=== PATIENT | male | born 1955 | race Hispanic/Latino ===

== ENCOUNTER 2019-09-04 06:38 | Observation (INO) | payer MEDICARE ==
[2019-09-04] MEDS ORDERED: ASPIRIN EC 325 MG TAB PO NR (06:57)
[2019-09-04] MEDS ORDERED: SODIUM CHLORIDE 0.9% 500 ML 500 ML IV SCH (07:00)
[2019-09-04 07:38] LABS: Basophils # (Auto) 0.1 K/mm3 (0.0-0.1); Eosinophils # (Auto) 0.4 K/mm3 (0.0-0.4); Eosinophils % (Auto) 3.3 % (0.0-4.3); Hematocrit 46.8 % (35.5-45.6); Hemoglobin 15.5 gm/dl (11.8-15.2); Lymphocytes # (Auto) 2.1 K/mm3 (1.2-5.4); Lymphocytes % (Auto) 17.5 % (13.4-35.0); Mean Corpuscular HGB Conc 33 % (32-34); Mean Corpuscular Volume 90 fl (84-94); Monocytes # (Auto) 1.2 K/mm3 (0.0-0.8); Platelet Count 271 K/mm3 (140-440); Red Blood Count 5.22 M/mm3 (3.65-5.03); Red Cell Distribution Width 13.9 % (13.2-15.2)
[2019-09-04 07:47] LABS: INR 1.05 (0.87-1.13)
[2019-09-04 07:49] LABS: BUN/Creatinine Ratio 23; Blood Urea Nitrogen 16 mg/dL (9-20); Calcium 8.9 mg/dL (8.4-10.2); Hemolysis Index 101
[2019-09-04] MEDS ORDERED: VERAPAMIL 5 MG/2 ML INJ ONE (08:19)
[2019-09-04] MEDS ORDERED: MIDAZOLAM 2 MG/2 ML INJ ONE (08:19)
[2019-09-04] MEDS ORDERED: HEPARIN 10,000 UNITS/10 ML VIAL ONE (08:19)
[2019-09-04] MEDS ORDERED: HEPARIN/NS 5000 UNIT/500ML 1,000 ML IR ONE (08:19)
[2019-09-04] MEDS ORDERED: LIDOCAINE (2%) 20 MG/1 ML VIAL 20 ML MDV INFILTRATI ONE (08:20)
[2019-09-04] MEDS ORDERED: NITROGLYCERIN SYRINGE 3 ML ONE (08:20)
[2019-09-04] MEDS: fentaNYL 100 MCG/2 ML INJ ONE ×2 (08:59→09:28)
[2019-09-04] MEDS ORDERED: SODIUM CHLORIDE 0.9% 50 ML ONE (09:11)
[2019-09-04] MEDS: BIVALIRUDIN 250 MG INJ IV ONE ×2 (09:12→09:20)
[2019-09-04] MEDS: CLOPIDOGREL 300 MG TAB ONE ×2 (09:35→09:49)
[2019-09-04] MEDS: ALUM-MAG HYDROXIDE-SIMETHICONE 200-200-20MG/5ML ORAL LIQD 30 ML ONE ×2 (09:36→09:49)
[2019-09-04] MEDS ORDERED: traMADol 50 MG TAB PO PRN (09:50)
[2019-09-04] MEDS ORDERED: ZOLPIDEM 5 MG TAB PO PRN (09:50)
[2019-09-04] MEDS ORDERED: ONDANSETRON 4 MG/2 ML INJ IV PRN (09:50)
[2019-09-04] MEDS ORDERED: DEXTROSE 50% IN WATER (25GM) 50 ML SYRINGE IV PRN (09:53)
[2019-09-04] MEDS ORDERED: SODIUM CHLORIDE 0.9% 1000 ML 1,000 ML IV SCH (10:00)
[2019-09-04] MEDS ORDERED: amLODIPine 5 MG TAB PO SCH (10:00)
--- NOTE | 2019-09-04 10:10 | Cardiac Catherization Report ---
LEFT HEART CATHETERIZATION, PERCUTANEOUS CORONARY INTERVENTION AND INTRAVASCULAR ULTRASOUND REPORT CLINICAL INFORMATION: This is a 64-year-old, hypertension, diabetes, cholesterol, coronary artery disease, smoker, has been having unstable anginal symptoms despite nitrates and calcium channel blockers, here for left heart catheterization. The patient was done under moderate sedation 30 minutes of supervised sedation, start 8:59 a.m., finished at 9:29 a.m. Procedure was done via the right radial artery, sterile technique, local anesthesia, 6-Bangladeshi radial sheath inserted. PROCEDURE FINDINGS: 1. Left system, JL3.5 catheter, left main is large and patent. LAD proximal diffuse 30-40%. Diagonal 1 small caliber vessel, long mid 70% with less than 2 mm vessel. Then, the mid LAD is a 95-99% lesion with MEG 3 flow. Rest of the vessel is a large caliber vessel, patent with mild luminal irregularities. Circumflex is a medium to large caliber vessel, patent with mild to moderate luminal irregularities. OM1 is a medium to large caliber vessel. It is patent with mild luminal irregularities. RCA engaged with JR4 catheter, is a large dominant vessel, proximal diffuse 30-40%, mid to distal patent with mild irregularities. PDA and PLV are medium caliber vessels are patent with mild luminal irregularities. LV gram done in ORALIA and DOMINGUEZ view shows normal LV function, LVEDP of 17 mmHg, LV is 162, aortic is 163/95. No gradient across the aortic valve on pullback. 5-Bangladeshi catheters all taken over a guidewire. Percutaneous coronary intervention of the LAD engaged the left system with an EBU 3.5 guiding catheter. 2. Crossed the distal LAD with short Carlotta wire. 3. Predilated with 2.5 x 12 mm balloon x 2 inflations at 15 atmospheres. 4. Reduced stenosis to 70%. 5. Intravascular ultrasound showed diffuse disease at the lesion reference vessel 3.5 x 3.2. Proximal too diffusely disease all the way up to the ostium, left main is patent. 6. Stented with a drug-eluting Xience 3.0 x 15 mm at 18 atmospheres. 7. Post-dilated with a 3.5 x 8 mm noncompliant balloon within the stent at 12 atmospheres x 2 inflations. 8. Repeat angiogram, excellent angiographic result, MEG 3 flow, reduced stenosis from 99% down 0% with no dissection or perforation, removed coronary wire, multiple angiograms, continued MEG 3 flow and no dissection or perforation and stent well opposed and expanded. 9. A 6-Bangladeshi guiding catheter taken over guidewire, 6-Bangladeshi radial sheath was discontinued. Radial band applied. No hematoma, no bleeding. SUMMARY: 1. Successful PCI of the mid LAD with IVUS directed with a drug-eluting Xience 3.0 x 15 mm postdilated with 3.5 x 8 x 2 inflations at 12 atmospheres. 2. Left main patent, LAD proximal 30-40%, diagonal 1 small vessel, less than 2 mm, mid 70%, circumflex large caliber vessel, patent. OM1 patent with mild irregularities. RCA proximal 30-40%, mid to distal patent. PDA, PLV patent with normal LV function. 3. Post-PCI care, risk factor modification 600 mg Plavix was loaded, dual antiplatelet therapy for a minimum of 1 year. Discussed this in detail with the patient and the patient's family. [facility]# [id number]
[2019-09-04] MEDS: INSULIN REGULAR, HUMAN 100 UNITS/1 ML SUB-Q SCH ×2 (14:10→20:06)
[2019-09-04] MEDS: FINASTERIDE 5 MG TAB PO SCH (15:00)
[2019-09-04] MEDS: amLODIPine 10 MG TAB PO SCH (15:00)
[2019-09-04] MEDS ORDERED: GABAPENTIN 100 MG CAP PO SCH (22:00)
[2019-09-05 07:29] LABS: Basophils # (Auto) 0.1 K/mm3 (0.0-0.1); Basophils % (Auto) 0.6 % (0.0-1.8); Eosinophils # (Auto) 0.3 K/mm3 (0.0-0.4); Eosinophils % (Auto) 2.7 % (0.0-4.3); Hematocrit 50.4 % (35.5-45.6); Hemoglobin 16.2 gm/dl (11.8-15.2); Lymphocytes # (Auto) 2.3 K/mm3 (1.2-5.4); Mean Corpuscular HGB Conc 32 % (32-34); Mean Corpuscular Volume 92 fl (84-94); Monocytes % (Auto) 7.8 % (0.0-7.3); Platelet Count 266 K/mm3 (140-440); Red Blood Count 5.46 M/mm3 (3.65-5.03); Red Cell Distribution Width 14.2 % (13.2-15.2)
[2019-09-05] MEDS: INSULIN REGULAR, HUMAN 100 UNITS/1 ML SUB-Q SCH (08:00)
[2019-09-05 08:04] LABS: BUN/Creatinine Ratio TNR; Blood Urea Nitrogen TNR mg/dL (9-20); Calcium TNR mg/dL (8.4-10.2)
[2019-09-05 08:05] LABS: Creatine Kinase MB TNR ng/mL (0.0-4.0); Hemolysis Index TNR
--- NOTE | 2019-09-05 09:09 | XRay Report ---
CHEST 1 VIEW 09/05/2019 8:15 AM INDICATION / CLINICAL INFORMATION: post pci. COMPARISON: None FINDINGS: SUPPORT DEVICES: None. HEART / MEDIASTINUM: No significant abnormality. LUNGS / PLEURA: Small right pleural effusion and right basilar parenchymal disease suggestive for bro nchopneumonia. Left lung is clear. No pneumothorax. ADDITIONAL FINDINGS: No significant additional findings. IMPRESSION: 1. Right lower lobe pleural-parenchymal disease suggestive for bronchopneumonia Signer Name: John Gee MD Signed: 09/05/2019 9:05 AM Workstation Name: [id number]
--- NOTE | 2019-09-05 09:50 | Short Stay Summary ---
<ALYCE HERNADEZ - Last Filed: 09/05/19 10:52> Short Stay Documentation Date of service: 09/05/19 - History H&P: obtained from office - Allergies and Medications Current Medications: Allergies No Known Allergies Allergy (Verified 02/08/15 08:49) Home Medications Medication Instructions Recorded Confirmed Last Taken Type Amlodipine Besylate 10 mg PO DAILY 02/08/15 09/04/19 09/02/19 History 10 mg Canagliflozin (Nf) [Invokana (Nf)] 300 mg PO TID 02/08/15 09/01/19 02/07/15 21:00 History Gabapentin 300 mg PO QHS 02/08/15 09/04/19 08/28/19 History 300 mg Metformin HCl 500 mg PO BID 02/08/15 09/04/19 09/01/19 History 500 mg Aspirin [Adult Aspirin] 81 mg PO DAILY 09/01/19 09/04/19 09/01/19 History 81 mg AtorvaSTATin [Lipitor] 40 mg PO QHS 09/01/19 09/04/19 09/02/19 History 40 mg Empagliflozin [Jardiance] 25 mg PO QAM 09/01/19 09/04/19 09/01/19 History 25 mg Finasteride 5 mg PO DAILY 09/01/19 09/04/19 09/02/19 History 5 mg ISOSORBIDE MONOnitrate [Imdur ER] 30 mg PO DAILY 09/01/19 09/01/19 Unknown History Liraglutide [Victoza 2-Edi] 1.2 mg SQ QDAY 09/01/19 09/04/19 09/02/19 History 1.2mg Nitrostat 0.4 mg SL UNK PRN 09/04/19 09/04/19 09/02/19 History 0.4mg Active Medications Amlodipine Besylate (Amlodipine) 10 mg PO DAILY [facility] Last Admin: 09/04/19 15:00 Dose: 10 mg Documented by: Aspirin (Baby Aspirin) 81 mg PO QDAY [facility] Atorvastatin Calcium (Lipitor) 40 mg PO QHS [facility] Last Admin: 09/04/19 21:46 Dose: 40 mg Documented by: Clopidogrel Bisulfate (Plavix) 75 mg PO QDAY [facility] Dextrose (D50w (25gm) Syringe) 50 ml IV Q30MIN PRN PRN Reason: Hypoglycemia Finasteride (Proscar) 5 mg PO DAILY [facility] Last Admin: 09/04/19 15:00 Dose: 5 mg Documented by: Gabapentin (Gabapentin) 300 mg PO QHS [facility] Last Admin: 09/04/19 21:46 Dose: 300 mg Documented by: Insulin Human Regular (Humulin R) 0 units SUB-Q ACHS [facility]; Protocol Last Admin: 09/04/19 20:06 Dose: Not Given Documented by: Isosorbide Mononitrate (Imdur) 30 mg PO DAILY [facility] Last Admin: 09/04/19 15:00 Dose: 30 mg Documented by: Ondansetron HCl (Zofran) 4 mg IV Q8H PRN PRN Reason: N/V unrelieved by Reglan Tramadol HCl (Ultram) 50 mg PO Q4H PRN PRN Reason: Pain, Mild (1-3) Zolpidem Tartrate (Ambien) 5 mg PO QHS PRN PRN Reason: Sleep - Physical exam General appearance: no acute distress Integumentary: no rash, no growths, no abnormal pigmentation, other ([facility] access site c/d/i, no bleeding or hematoma) HEENT: Atraumatic, PERRLA, EOMI Lungs: Clear to auscultation Heart: Regular rate, Normal S1, Normal S2 Gastrointestinal: normal, normoactive bowel sounds Extremities: no ischemia, pulses intact, pulses symmetrical, No edema Neurological: Normal gait, Normal speech, Strength at 5/5 X4 ext - Brief post op/procedure progress note Date of procedure: 09/04/19 Pre-op diagnosis: CAD Post-op diagnosis: same Procedure: [facility] with PCI - see dictated cath report Anesthesia: local Estimated blood loss: none Condition: stable - Disposition Condition at discharge: Good Disposition: DC-01 TO HOME OR SELFCARE - Discharge Diagnoses (1) CAD (coronary artery disease) Status: Chronic (2) Stented coronary artery Status: Chronic (3) COPD (chronic obstructive pulmonary disease) Status: Chronic (4) HTN (hypertension) Status: Chronic (5) Hyperlipemia Status: Chronic Short Stay Discharge Plan Activity: advance as tolerated Diet: low fat, low cholesterol, low salt Wound: open to air, keep clean and dry, per your surgeon's advice Follow up with: PRIMARY CARE, [Primary Care Provider] - 7 Days CAYDEN PARR MD [Staff Physician] - 7 Days Forms: Work/School Release Form Prescriptions: Clopidogrel [Plavix] 75 mg PO QDAY #90 tablet <CAYDEN PARR - Last Filed: 09/06/19 08:44> Short Stay Documentation - Allergies and Medications Current Medications: Allergies No Known Allergies Allergy (Verified 02/08/15 08:49) Home Medications Medication Instructions Recorded Confirmed Last Taken Type Amlodipine Besylate 10 mg PO DAILY 02/08/15 09/04/19 09/02/19 History 10 mg Canagliflozin (Nf) [Invokana (Nf)] 300 mg PO TID 02/08/15 09/01/19 02/07/15 21:00 History Gabapentin 300 mg PO QHS 02/08/15 09/04/19 08/28/19 History 300 mg Metformin HCl 500 mg PO BID 02/08/15 09/04/19 09/01/19 History 500 mg Aspirin [Adult Aspirin] 81 mg PO DAILY 09/01/19 09/04/19 09/01/19 History 81 mg AtorvaSTATin [Lipitor] 40 mg PO QHS 09/01/19 09/04/19 09/02/19 History 40 mg Empagliflozin [Jardiance] 25 mg PO QAM 09/01/19 09/04/19 09/01/19 History 25 mg Finasteride 5 mg PO DAILY 09/01/19 09/04/19 09/02/19 History 5 mg ISOSORBIDE MONOnitrate [Imdur ER] 30 mg PO DAILY 09/01/19 09/01/19 Unknown History Liraglutide [Victoza 2-Edi] 1.2 mg SQ QDAY 09/01/19 09/04/19 09/02/19 History 1.2mg Nitrostat 0.4 mg SL UNK PRN 09/04/19 09/04/19 09/02/19 History 0.4mg Aspirin [Aspirin BABY CHEW TAB] 81 mg PO QDAY tab.chew 09/05/19 Unknown Rx Clopidogrel [Plavix] 75 mg PO QDAY #90 tablet 09/05/19 Unknown Rx Zolpidem [Ambien] 5 mg PO QHS PRN tablet 09/05/19 Unknown Rx amLODIPine 10 mg PO DAILY tablet 09/05/19 Unknown Rx - Brief post op/procedure progress note Pathology: none - Hospital course Hospital course: pt was admitted for unstable angina despite medical treatment with history of smoking, cad, dm, chol and htn and cath revealed lad mid 99% with pci of lad with pearl xience 3.0 xs 15 mm and post 3.5 x 8 mm ivus directed, placed on asa and plavix, pt chest pain resolved after pci and ambulated and observed pt and discharge with smoking cessation counseling and education. cont home meds, held metformin for two days and need aggressive risk factor modifications. - Discharge Diagnoses (1) Diabetes mellitus Status: Acute Qualifiers: Diabetes mellitus type: type 2 Diabetes mellitus halfway insulin use: with halfway use Diabetes mellitus complication status: with circulatory complication Diabetes mellitus complication detail: with other circulatory complications Qualified Code(s): E11.59 - Type 2 diabetes mellitus with other circulatory complications; Z79.4 - snf (current) use of insulin (2) Chest pain Status: Acute Qualifiers: Ischemic chest pain type: unstable angina pectoris (3) CAD (coronary artery disease) Status: Chronic Qualifiers: Coronary Disease-Associated Artery/Lesion type: [place] artery [place] vs. transplanted heart: [place] heart Associated angina: with unstable angina Qualified Code(s): I25.110 - Atherosclerotic heart disease of [place] coronary artery with unstable angina pectoris (4) COPD (chronic obstructive pulmonary disease) Status: Chronic Qualifiers: COPD type: unspecified COPD Qualified Code(s): J44.9 - Chronic obstructive pulmonary disease, unspecified (5) HTN (hypertension) Status: Chronic Qualifiers: Hypertension type: essential hypertension Qualified Code(s): I10 - Essential (primary) hypertension (6) Hyperlipemia Status: Chronic Qualifiers: Hyperlipidemia type: mixed hyperlipidemia Qualified Code(s): E78.2 - Mixed hyperlipidemia (7) Tobacco abuse Status: Chronic Short Stay Discharge Plan Special Instructions: hold Metformin (for two days)
[2019-09-05] MEDS ORDERED: ASPIRIN 81 MG TAB CHEW PO SCH (10:00)
[2019-09-05] MEDS ORDERED: CLOPIDOGREL 75 MG TAB PO SCH (10:00)
[2019-09-05] MEDS: amLODIPine 10 MG TAB PO SCH (10:38)
[2019-09-05] MEDS: FINASTERIDE 5 MG TAB PO SCH (10:38)
[2019-09-05 10:40] VITALS: BP 153/94
[2019-09-05 10:41] LABS: Creatine Kinase MB 6.6 ng/mL (0.0-4.0)
[2019-09-05 10:44] LABS: BUN/Creatinine Ratio 21; Blood Urea Nitrogen 15 mg/dL (9-20); Calcium 8.8 mg/dL (8.4-10.2); Hemolysis Index 5
[2019-09-05 11:18] LABS: Chol/HDL Ratio 3.38 %; HDL Cholesterol 42 mg/dL (40-59); LDL Cholesterol,Direct 95 mg/dL (50-130)
[2019-09-05] MEDS ORDERED: FLU VACC QUAD 2019-20 (3 YR UP)/PF 60 MCG/0.5 ML SYRINGE IM ONE (12:00)
== END 2019-09-05 11:10 | disposition home or self-care (01) ==
LOC: CATHLABREC 06:38 → 4A 09:50
PROVIDERS: ADMIT Internal Medicine; ATTEND Internal Medicine
DX: I25.10 Atherosclerotic heart disease of native coronary artery without angina pectoris (principal); J44.9 Chronic obstructive pulmonary disease, unspecified; I10 Essential (primary) hypertension; E11.9 Type 2 diabetes mellitus without complications; B19.20 Unspecified viral hepatitis C without hepatic coma; E78.5 Hyperlipidemia, unspecified; E66.01 Morbid (severe) obesity due to excess calories; Z72.0 Tobacco use; Z68.33 Body mass index [BMI] 33.0-33.9, adult; Z95.1 Presence of aortocoronary bypass graft
CPT/HCPCS: 36415; 71045; 80048; 80061; 82550; 82553; 82962; 84484; 85025; 85347; 85610; 85730; 92978; 93005; 93010; 93458; 96372; 99406; A9270; C1725; C1753; C1769; C1874; C1887; C1894; C9600; G0378; J0583; J1644; J2250; J3010; J7040; 90686; 92928; Q9967

== ENCOUNTER 2021-08-01 07:16 | Day surgery (SDC) | payer MEDICARE ==
[2021-08-01] MEDS ORDERED: SODIUM CHLORIDE 0.9% 500 ML 500 ML IV SCH (08:00)
[2021-08-01 08:10] LABS: Basophils # (Auto) 0.1 K/mm3 (0.0-0.1); Eosinophils # (Auto) 0.5 K/mm3 (0.0-0.4); Eosinophils % (Auto) 3.5 % (0.0-4.3); Hematocrit 37.3 % (35.5-45.6); Hemoglobin 12.9 gm/dl (11.8-15.2); Lymphocytes # (Auto) 2.5 K/mm3 (1.2-5.4); Lymphocytes % (Auto) 17.7 % (13.4-35.0); Mean Corpuscular HGB Conc 35 % (32-34); Mean Corpuscular Volume 85 fl (84-94); Monocytes # (Auto) 1.2 K/mm3 (0.0-0.8); Monocytes % (Auto) 8.1 % (0.0-7.3); Platelet Count 306 K/mm3 (140-440); Red Cell Distribution Width 16.1 % (13.2-15.2)
[2021-08-01 08:21] LABS: INR 0.91 (0.87-1.13)
[2021-08-01 08:30] LABS: BUN/Creatinine Ratio 15; Blood Urea Nitrogen 12 mg/dL (9-20); Hemolysis Index 32
--- NOTE | 2021-08-01 08:51 | Electrocardiograph Report ---
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
[2021-08-01] MEDS ORDERED: ASPIRIN 81 MG TAB CHEW PO SCH (10:00)
[2021-08-01] MEDS ORDERED: HEPARIN 10,000 UNITS/10 ML VIAL ONE (10:07)
[2021-08-01] MEDS ORDERED: HEPARIN/NS 5000 UNIT/500ML 1,000 ML IR ONE (10:07)
[2021-08-01] MEDS ORDERED: MIDAZOLAM 2 MG/2 ML INJ ONE (10:07)
[2021-08-01] MEDS ORDERED: NITROGLYCERIN SYRINGE 3 ML ONE (10:08)
[2021-08-01] MEDS ORDERED: fentaNYL 100 MCG/2 ML INJ ONE (10:08)
[2021-08-01] MEDS ORDERED: VERAPAMIL 5 MG/2 ML INJ ONE (10:08)
[2021-08-01] MEDS ORDERED: LIDOCAINE (2%) 20 MG/1 ML VIAL 20 ML MDV INFILTRATI ONE (10:08)
--- NOTE | 2021-08-01 11:37 | Cardiac Catherization Report ---
DATE OF SERVICE: 08/01/2021 LEFT HEART CATHETERIZATION CLINICAL INFORMATION: This is a 66-year-old former smoker, obesity, diabetes, hypertension, hyperlipidemia, coronary artery disease, PCI to LAD in 2017, paroxysmal atrial fibrillation, was in the hospital at [facility] for systolic heart failure with EF of 40% with non-STEMI. Cardiac catheterization was deferred because of COVID status. The patient is currently compensated here for left heart catheterization. Procedure was done. Moderate sedation start at 10:30, finished at 10:53. Fifteen minutes of moderate sedation done. DESCRIPTION OF PROCEDURE: Procedure was done via the right radial artery, sterile technique and local anesthesia. A 6-Bangladeshi radial sheath inserted. Left system engaged with JL3.5 catheter. Left main is a large caliber was patent. Proximal, mid patent, distal 20%. Ostial LAD of a medium to large caliber vessel with 90%. Mid stent patent. Diagonal 1 is a small caliber vessel in the upper and lower branch. Lower branch has diffuse 90% of less than 2 mm vessel. Rest of the LAD is a medium to large caliber patent with mild luminal irregularities. Circumflex and AV groove is a medium caliber vessel patent with mild luminal irregularities. Ramus is a medium caliber vessel has proximal 30%. OM1 is a medium caliber vessel, patent. RCA engaged JR4 is a large, dominant vessel with diffuse disease with mid 20-30%. LV gram done in ORALIA and DOMINGUEZ view shows normal LV function, EF 50% to 55%. LVEDP at 33 mmHg. LV is 163, aortic is 160/90. No gradient across the aortic valve on pullback. A 5-Bangladeshi catheters all taken over a guidewire. A 6-Bangladeshi radial sheath discontinued. Radial band applied. No hematoma, no bleeding. SUMMARY: Left main, proximal, mid patent distal 20% LAD, ostial 90% mid stent patent. Diagonal 1 small caliber, lower branch 90% ramus, medium caliber proximal 30%. Circumflex AV groove was patent. OM1, medium caliber vessel, patent. RCA mid 20-30% diffuse disease, normal LV function, elevated left end end-diastolic pressure. RECOMMENDATIONS: The patient will be referred for robotic ALDANA to LAD. Discussed this in detail with the patient and the patient's family. TID: [id number] RECEIPT: [id number] JASONM/KIRK
--- NOTE | 2021-08-01 11:38 | Short Stay Summary ---
Short Stay Documentation Date of service: 08/01/21 - History H&P: obtained from office - Allergies and Medications Current Medications: Allergies No Known Allergies Allergy (Verified 02/08/15 08:49) Home Medications Medication Instructions Recorded Confirmed Last Taken Type Amlodipine Besylate 10 mg PO DAILY 02/08/15 08/01/21 09/02/19 History 10 mg Gabapentin 300 mg PO QHS 02/08/15 08/01/21 08/28/19 History 300 mg Metformin HCl 1,000 mg PO BID 02/08/15 08/01/21 07/30/21 History 1000 AtorvaSTATin [Lipitor] 40 mg PO QHS 09/01/19 08/01/21 07/30/21 History 40 mg Empagliflozin [Jardiance] 25 mg PO QAM 09/01/19 08/01/21 09/01/19 History 25 mg Finasteride 5 mg PO DAILY 09/01/19 08/01/21 09/02/19 History 5 mg ISOSORBIDE MONOnitrate [Imdur ER] 30 mg PO DAILY 09/01/19 08/01/21 07/30/21 History 30 mg Liraglutide [Victoza 2-Edi] 1.2 mg SQ QDAY 09/01/19 08/01/21 09/02/19 History 1.2mg Nitrostat 0.4 mg SL UNK PRN 09/04/19 08/01/21 09/02/19 History 0.4mg Aspirin [Aspirin BABY CHEW TAB] 81 mg PO QDAY tab.chew 09/05/19 08/01/21 07/30/21 Rx 81 mg Zolpidem [Ambien] 5 mg PO QHS PRN tablet 09/05/19 08/01/21 Unknown Rx amLODIPine 10 mg PO DAILY tablet 09/05/19 08/01/21 Unknown Rx Apixaban [Eliquis] 5 mg PO BID 08/01/21 08/01/21 07/30/21 History 5 mg Ezetimibe [Zetia] 10 mg PO DAILY 08/01/21 08/01/21 07/30/21 History 10 mg Furosemide [Lasix TAB] 40 mg PO DAILY 08/01/21 08/01/21 07/30/21 History 40 mg Lisinopril [Zestril TAB] 2.5 mg PO QDAY 08/01/21 08/01/21 07/30/21 History 2.5 mg Metoprolol [Lopressor TAB] 25 mg PO DAILY 08/01/21 08/01/21 07/30/21 History 25 mg Active Medications Aspirin (Aspirin 81 Mg Tab Chew) 81 mg PO QDAY CARLOS Sodium Chloride (Nacl 0.9% 500 Ml) 500 mls @ 50 mls/hr IV DIRECT CARLOS Stop: 08/01/21 17:59 - Physical exam Integumentary: other (clean, dry, intact, no bleeding or hematoma) - Brief post op/procedure progress note Date of procedure: 08/01/21 Pre-op diagnosis: NSTEMI Post-op diagnosis: same Anesthesia: local Estimated blood loss: minimal - Disposition Condition at discharge: Good Disposition: 01 HOME / SELF CARE / HOMELESS - Discharge Diagnoses (1) Chest pain Status: Acute Qualifiers: Ischemic chest pain type: unstable angina pectoris (2) CAD (coronary artery disease) Status: Chronic Qualifiers: Coronary Disease-Associated Artery/Lesion type: [place] artery [place] vs. transplanted heart: [place] heart Associated angina: with unstable angina Qualified Code(s): I25.110 - Atherosclerotic heart disease of [place] coronary artery with unstable angina pectoris (3) HTN (hypertension) Status: Chronic Qualifiers: Hypertension type: essential hypertension Qualified Code(s): I10 - Essential (primary) hypertension (4) Hyperlipemia Status: Chronic Qualifiers: Hyperlipidemia type: mixed hyperlipidemia Qualified Code(s): E78.2 - Mixed hyperlipidemia (5) Stented coronary artery Status: Chronic Short Stay Discharge Plan Activity: advance as tolerated Diet: low fat, low cholesterol, low salt Wound: keep clean and dry, per your surgeon's advice Follow up with: MARIO SHETTY [Other] - 7 Days CAYDEN ALMONTE MD [Staff Physician] - 09/05/21 8:30 am (Patient has follow up appointment with Dr. Almonte on 09/05/2021 At 8:30am at our [place] location. )
[2021-08-01 12:51] VITALS: BP 159/75
== END 2021-08-01 07:17 | disposition home or self-care (01) ==
LOC: CATHLABREC 07:16
PROVIDERS: ATTEND Internal Medicine
DX: I25.5 Ischemic cardiomyopathy (principal); I11.0 Hypertensive heart disease with heart failure; I50.23 Acute on chronic systolic (congestive) heart failure; J43.9 Emphysema, unspecified; E78.00 Pure hypercholesterolemia, unspecified; I25.10 Atherosclerotic heart disease of native coronary artery without angina pectoris; I48.91 Unspecified atrial fibrillation; G47.30 Sleep apnea, unspecified; N40.0 Benign prostatic hyperplasia without lower urinary tract symptoms; M19.90 Unspecified osteoarthritis, unspecified site; F17.210 Nicotine dependence, cigarettes, uncomplicated; Z90.49 Acquired absence of other specified parts of digestive tract; Z98.890 Other specified postprocedural states; Z82.49 Family history of ischemic heart disease and other diseases of the circulatory system; Z95.5 Presence of coronary angioplasty implant and graft; Z79.82 Long term (current) use of aspirin; Z79.84 Long term (current) use of oral hypoglycemic drugs; Z79.899 Other long term (current) drug therapy
CPT/HCPCS: 36415; 80048; 85025; 85610; 85730; 93005; 93458; 99156; 99157; C1894; J1644; J2250; J3010; J7040; Q9967